=== PATIENT | female | born 1955 | race Caucasian/White ===

== ENCOUNTER → 2021-01-02 | Outpatient (CLI) | payer MEDICARE ==
--- NOTE | 2021-01-02 12:26 | KCIC ---
EXAM: Lumbar spine MRI without contrast. HISTORY: Spinal stenosis. TECHNIQUE: Multiplanar, multisequence magnetic resonance imaging of the lumbar spine was performed wi thout contrast. COMPARISON: None. FINDINGS: There is 3 mm anterolisthesis of L4 on L5. There is 2 mm retrolisthesis of L1 on L2 and L2 on L3. There is degenerative endplate remodeling at multiple levels. There are multiple endplate Schm orl's nodes. There is no suspicious osseous lesion. There is no fracture. The conus terminates at L1. At L1-L2, there is a disc bulge and endplate remodeling. There is mild bilateral facet arthropathy. T here is mild left foraminal stenosis. At L2-L3, there is a disc bulge and endplate remodeling. There is mild bilateral facet arthropathy. T here is no stenosis. At L3-L4, there is a broad-based left paracentral to foraminal disc protrusion and annular tear super imposed on a disc bulge and endplate remodeling. There is mild left greater than right facet arthropa thy. There is mild left foraminal stenosis. There is narrowing of the left lateral recess and mild ce ntral canal stenosis. At L4-L5, there is mild right and moderate left facet arthropathy. There is grade 1 anterolisthesis. There is no stenosis. At L5-S1, there is moderate right and mild left facet arthropathy. There is no stenosis IMPRESSION: Multilevel degenerative change involving the lumbar spine, described in detail above. Thi s is associated with mild left foraminal stenosis at L1-L2 and mild left foraminal and central canal stenosis with narrowing of the left lateral recess at L3-L4. Electronically signed by: Lynn Oconnor MD (01/02/2021 12:24 PM) [id number]
== END ==
LOC: KCIC MRI 10:34
PROVIDERS: ATTEND Family Medicine
DX: M47.817 Spondylosis without myelopathy or radiculopathy, lumbosacral region (principal); M48.061 Spinal stenosis, lumbar region without neurogenic claudication
CPT/HCPCS: 72148